=== PATIENT | male | born 1950 | race Caucasian/White ===

== ENCOUNTER 2017-08-26 20:26 | Emergency (ER) | payer MEDICAID, OTHER ==
[~2017-08-26] VITALS: Ht 188 cm; Wt 80.0 kg
[~2017-08-26 20:26] MED LIST: MULT-750 PO
[2017-08-26 22:36] VITALS: BP 145/94
== END 2017-08-26 22:37 | disposition home or self-care (01) ==
LOC: ED 22:05
DX: F10.220 Alcohol dependence with intoxication, uncomplicated (principal)
CPT/HCPCS: 99283

== ENCOUNTER 2018-04-08 13:28 | Emergency (ER) | payer MEDICARE, OTHER ==
[~2018-04-08] VITALS: Ht 188 cm; Wt 90.0 kg
[2018-04-08 15:45] VITALS: BP 157/95
== END 2018-04-08 17:26 | disposition left against medical advice (07) ==
LOC: ED 15:11
DX: F10.220 Alcohol dependence with intoxication, uncomplicated (principal)
CPT/HCPCS: 99283

== ENCOUNTER 2018-11-20 12:18 | Emergency (ER) | payer MEDICARE ==
[~2018-11-20] VITALS: Ht 188 cm; Wt 85.2 kg
[~2018-11-20 12:18] MED LIST changes: +LISI-167 PO
[2018-11-20] MEDS ORDERED: SODIUM CHLORIDE 0.9% 1,000 ML IV ONE (12:48)
[2018-11-20] MEDS ORDERED: ONDANSETRON 2MG/ML, 2ML IVPush ONE (13:00)
[2018-11-20] MEDS ORDERED: SODIUM CHLORIDE 0.9% 1,000ML IVBOLUS ONE (13:00)
[2018-11-20] MEDS ORDERED: SODIUM CHLORIDE FLUSH 10ML SYR IVF ONE (13:00)
[2018-11-20] MEDS ORDERED: ONDANSETRON 2MG/ML, 2ML ONE (13:02)
[2018-11-20] MEDS ORDERED: HYDROmorphone 1 MG/ML, 1ML VIAL ONE (13:03)
[2018-11-20 13:10] LABS: BASOPHILS % (AUTO) 0 % (0-1); EOSINOPHILS # (AUTO) 0.12 x10^3/uL (0-0.4); EOSINOPHILS % (AUTO) 2 % (1-7); LYMPHOCYTES # (AUTO) 0.63 x10^3/uL (1-3.4); LYMPHOCYTES % (AUTO) 9 % (22-44); MD NO; MEAN CORPUSCULAR HEMOGLOBIN 34.9 pg (27.5-34.5); MEAN CORPUSCULAR HGB CONC 33.3 g/dL (33.2-36.2); MEAN CORPUSCULAR VOLUME 104.8 fL (81-97); MEAN PLATELET VOLUME 8.4 fL (7.4-10.4); MONOCYTES # (AUTO) 0.34 x10^3/uL (0.2-0.8); MONOCYTES % (AUTO) 5 % (2-9); NEUTROPHILS # (AUTO) 6.27 x10^3/uL (1.8-6.8); NEUTROPHILS % (AUTO) 85 % (42-75); PLATELET COUNT 330 x10^3/uL (130-400); RED BLOOD COUNT 3.75 x10^6/uL (4.38-5.82); RED CELL DISTRIBUTION WIDTH 15.9 % (9.4-14.8)
--- NOTE | 2018-11-20 13:10 | NUR ---
THIS IS A 67 YO MALE WHO PRESENTS TO THE ER C/O N/V AND RUQ PINPOINT PAIN X 2 DAYS. PT REPORTS 5 TOTAL EPISODES OF EMESIS. PT ALSO REPORTS BLACK STOOL BUT STATES "I'VE BEEN TAKING A LOT OF PEPTO BISMAL". PT AO X 4. SKIN PWD. RESP EVEN AND UNLABORED. PT ON CONT BP AND O2 MONITORS. CALL LIGHT WITHIN REACH. WILL CONT TO MONITOR PT.
[2018-11-20] MEDS ORDERED: PANTOPRAZOLE 40 MG IV ONE (13:15)
[2018-11-20 13:22] LABS: ALANINE AMINOTRANSFERASE 428 U/L (12-78); ALBUMIN 3.9 g/dL (3.4-5.0); ANION GAP 7 mmol/L (5-15); CALCIUM 9.8 mg/dL (8.5-10.1); CHLORIDE 103 mmol/L (98-107); CREATININE 1.19 mg/dL (0.7-1.3)
[2018-11-20 13:28] LABS: ALKALINE PHOSPHATASE 135 U/L (45-117); BILIRUBIN,TOTAL 3.6 mg/dL (0.2-1.0); TOTAL PROTEIN 7.8 g/dL (6.4-8.2); TROPONIN I < 0.015 ng/mL (0.000-0.045)
[2018-11-20] MEDS ORDERED: PANTOPRAZOLE 40 MG IV IVP ONE (13:30)
[2018-11-20] MEDS ORDERED: HYDROmorphone 2 MG/ML, 1ML IVPush PRN (13:30)
--- NOTE | 2018-11-20 14:10 | NUR ---
US AT BEDSIDE. PT REPORTS PAIN IS NOW MOSTLY RESOLVED. PT AO X 4. SKIN PWD. RESP EVEN AND UNLABORED. PT CURRENTLY DENIES NAUSEA. PT ON CONT BP, CARDIAC AND O2 MONITORS. CALL LIGHT WITHIN REACH. WILL CONT TO MONITOR PT.
--- NOTE | 2018-11-20 14:52 | NUR ---
JARED STUDENT LUCINA AT BEDSIDE FOR RECHECK/EXPLANATION OF POC/RESULTS. PT VERBALIZES UNDERSTANDING. PT CURRENTLY DENIES PAIN. PT WAS STEADY UPON AMBULATION TO RESTROOM. URINE SAMPLE WAS OBTAINED AND SENT TO LAB. PT AO X 4. SKIN PWD. RESP EVEN AND UNLABORED. PT ON CONT BP, CARDIAC AND O2 MONITORS. CALL LIGHT WITHIN REACH. WILL CONT TO MONITOR PT.
[2018-11-20 15:11] LABS: CULTURE INDICATED? YES; MICROSCOPIC INDICATED
[2018-11-20] MEDS ORDERED: SODIUM CHLORIDE FLUSH 10ML SYR IVF PRN (15:30)
--- NOTE | 2018-11-20 15:34 | NUR ---
PT CURRENTLY RESTING ON GURNEY. NAD NOTED. SKIN PWD. RESP EVEN AND UNLABORED. PT REPORTED TO RN "ORIGINALLY I AGREED TO BEING ADMITTED, BUT I JUST CAN'T. 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 I'LL COME BACK. BUT I JUST HAVE TOO MUCH GOING ON RIGHT NOW." RN DISCUSSED THIS WITH EDITING COMPUTER PUBLISHER STUDENT LUCINA WHO WILL DISCUSS IT THE ERMMic LI. PT CONT TO DENY PAIN OR N/V AT THIS TIME. PT ON CONT BP, CARDIAC AND O2 MONITORS. PT AWARE WE ARE WAITING FOR ERMD TO DISCUSS POC WITH PT. PT DENIES OTHER NEEDS AT THIS TIME. CALL LIGHT WITHIN REACH. WILL CONT TO MONITOR PT.
--- NOTE | 2018-11-20 16:34 | NUR ---
PT CURRENTLY RESTING ON GURNEY. NAD NOTED. SKIN PWD. RESP EVEN AND UNLABORED. PT CONT TO DENY PAIN AND N/V. PT AOX 4. SKIN PWD. RESP EVEN AND UNLABORED. PT AWARE THAT WE ARE WAITING FOR HOSPITALIST TO SEE PT AND DISCUSS POC FOR POSSIBLY LEAVING. PT ON CONT BP, CARDIAC AND O2 MONITORS. CALL LIGHT WITHIN REACH. WILL CONT TO MONITOR PT.
--- NOTE | 2018-11-20 17:01 | NUR ---
PT APPEARED IN HALLWAY BY RN STATION, PT HAD PULLED OWN IV. IV CATHETER TIP INTACT. PT EDUCATED BY RN ON RISKS OF LEAVING AMA UP TO AND INCLUDING . RN STRONGLY EDUCATED PT NOT TO DRINK. PT VERBALIZED UNDERSTANDING AND STATED HE WOULD RETURN "AFTER THIS PROJECT IS DONE". AMA PAPERWORK SIGNED.
[2018-11-20 17:08] VITALS: BP 156/78
== END 2018-11-20 15:05 ==
LOC: ED 15:04 → EDIP 15:05 → UNDOADMIN 15:05 → ED 15:05 → 3NE 15:51 → EDIP 15:51 → 3NE 16:41 → EDIP 16:41 → UNDODISIN 17:08
DX: R10.11 Right upper quadrant pain (principal); R10.13 Epigastric pain; E80.6 Other disorders of bilirubin metabolism; R11.2 Nausea with vomiting, unspecified
CPT/HCPCS: 36415; 76700; 80053; 81001; 83605; 83690; 84484; 85025; 87086; 93005; 96361; 96374; 96375; 99285; C9113; J1170; J2405; J7030

== ENCOUNTER 2019-09-16 19:50 | Emergency (ER) | payer MEDICARE ==
[~2019-09-16] VITALS: Ht 188 cm; Wt 82.0 kg
[~2019-09-16 19:50] MED LIST changes: +CEFD300C37 PO; +METR500T PO; +[UNRECOGNIZED DRUG - REMARK]
--- NOTE | 2019-09-16 20:10 | NUR ---
Patient BIB [facility] c/o witnessed seizure x1 today. Unknown amount of time. No hx of seizures. Patient drinks alcohol and has not had any since yesterday. Patient is currently AAOx3, GCS 15. Patient is in NAD. Respirations even and unlabored.
[2019-09-16] MEDS ORDERED: ONDANSETRON 2MG/ML, 2ML ONE (20:42)
[2019-09-16] MEDS ORDERED: ONDANSETRON 2MG/ML, 2ML IVPush ONE (21:00)
[2019-09-16] MEDS ORDERED: LORazepam 2 MG/ML, 1ML ONE (21:02)
[2019-09-16] MEDS ORDERED: LORazepam 2 MG/ML, 1ML IVPush ONE (21:30)
[2019-09-16] MEDS ORDERED: SODIUM CHLORIDE 0.9% 1,000ML IVBOLUS ONE (21:30)
[2019-09-16 21:50] LABS: ALANINE AMINOTRANSFERASE 44 U/L (12-78); ALBUMIN 4.3 g/dL (3.4-5.0); ANION GAP 20 mmol/L (5-15); CALCIUM 9.6 mg/dL (8.5-10.1); CHLORIDE 100 mmol/L (98-107); CREATININE 1.12 mg/dL (0.7-1.3)
[2019-09-16 21:52] LABS: ALKALINE PHOSPHATASE 73 U/L (45-117); BILIRUBIN,TOTAL 1.2 mg/dL (0.2-1.0); TOTAL PROTEIN 8.5 g/dL (6.4-8.2)
[2019-09-16 21:53] LABS: BASOPHILS % (AUTO) 0 % (0-1); EOSINOPHILS % (AUTO) 0 % (1-7); LYMPHOCYTES # (AUTO) 0.54 x10^3/uL (1-3.4); LYMPHOCYTES % (AUTO) 8 % (22-44); MD NO; MEAN CORPUSCULAR HEMOGLOBIN 35.4 pg (27.5-34.5); MEAN CORPUSCULAR HGB CONC 33.7 g/dL (33.2-36.2); MEAN PLATELET VOLUME 8.4 fL (7.4-10.4); MONOCYTES # (AUTO) 0.37 x10^3/uL (0.2-0.8); MONOCYTES % (AUTO) 5 % (2-9); NEUTROPHILS # (AUTO) 5.99 x10^3/uL (1.8-6.8); NEUTROPHILS % (AUTO) 87 % (42-75); PLATELET COUNT 147 x10^3/uL (130-400); RED BLOOD COUNT 4.07 x10^6/uL (4.38-5.82); RED CELL DISTRIBUTION WIDTH 14.9 % (9.4-14.8)
[2019-09-16 22:34] VITALS: BP 148/82
--- NOTE | 2019-09-16 22:43 | NUR ---
Patient tremors decreased. HR decreased to the 70s. Patient AAOx4 and answering all questions appropriately. Patient states he is going to attempt to stop drinking at home. Discharge instructions given. All questions and concerns addressed. Patient states he will call daughter on his own. Patient ambulatory with a steady gait. Belongings with patient.
== END 2019-09-16 22:52 | disposition home or self-care (01) ==
LOC: ED 22:00
DX: R56.9 Unspecified convulsions (principal); F10.239 Alcohol dependence with withdrawal, unspecified; F41.9 Anxiety disorder, unspecified; R45.4 Irritability and anger; R41.82 Altered mental status, unspecified; R94.31 Abnormal electrocardiogram [ECG] [EKG]; I10 Essential (primary) hypertension; Y90.9 Presence of alcohol in blood, level not specified
CPT/HCPCS: 36415; 70450; 80053; 80307; 85025; 93005; 96365; 96375; 99285; J2060; J2405; J7030

== ENCOUNTER 2019-11-11 13:34 | Inpatient (IN) | payer MEDICARE ==
[~2019-11-11] VITALS: Ht 190.5 cm; Wt 104.8 kg
[2019-11-11] MEDS ORDERED: LORazepam 2 MG/ML, 1ML ONE ×3 (13:50→18:19)
[2019-11-11] MEDS: LORazepam 2 MG/ML, 1ML IVPush PRN ×3 (13:52→18:21)
[2019-11-11] MEDS ORDERED: MAGNESIUM SULFATE 1 GM, THIAMINE 100 MG, FOLIC ACID 1 MG, MVI ADULT 10 ML in SODIUM CHL... IV ONE (14:00)
[2019-11-11] MEDS ORDERED: SODIUM CHLORIDE FLUSH 10ML SYR IVF ONE (14:00)
[2019-11-11] MEDS ORDERED: PLEASE ENTER HEIGHT AND WEIGHT MC SCH (14:00)
--- NOTE | 2019-11-11 14:00 | NUR ---
pt had sz 30 seconds, then fell back and hit head. small bump/scrape bleding contrld. oriented to self, reoriented to time/place/situation. sts wants to stop drinking. witnessed by roommate. here last month for same. speaking in full sentences. neuros grossly intact. denies ah/vh. shaking. grausz in room. ativan per jul, piv by ems. as
[2019-11-11 14:22] LABS: BASOPHILS # (AUTO) 0.01 x10^3/uL (0-0.1); BASOPHILS % (AUTO) 0 % (0-1); EOSINOPHILS # (AUTO) 0.04 x10^3/uL (0-0.4); EOSINOPHILS % (AUTO) 1 % (1-7); LYMPHOCYTES # (AUTO) 0.66 x10^3/uL (1-3.4); LYMPHOCYTES % (AUTO) 9 % (22-44); MD NO; MEAN CORPUSCULAR HEMOGLOBIN 36.5 pg (27.5-34.5); MEAN CORPUSCULAR HGB CONC 34.1 g/dL (33.2-36.2); MEAN CORPUSCULAR VOLUME 107.1 fL (81-97); MEAN PLATELET VOLUME 8.4 fL (7.4-10.4); MONOCYTES % (AUTO) 4 % (2-9); NEUTROPHILS # (AUTO) 6.11 x10^3/uL (1.8-6.8); NEUTROPHILS % (AUTO) 86 % (42-75); PLATELET COUNT 192 x10^3/uL (130-400); RED BLOOD COUNT 3.95 x10^6/uL (4.38-5.82); RED CELL DISTRIBUTION WIDTH 17.4 % (9.4-14.8)
[2019-11-11 14:23] LABS: ANION GAP 16 mmol/L (5-15); CALCIUM 9.2 mg/dL (8.5-10.1); CHLORIDE 102 mmol/L (98-107)
[2019-11-11 14:27] LABS: ALANINE AMINOTRANSFERASE 63 U/L (12-78); ALKALINE PHOSPHATASE 85 U/L (45-117); BILIRUBIN,TOTAL 1.1 mg/dL (0.2-1.0); CREATININE 1.31 mg/dL (0.7-1.3); TOTAL PROTEIN 8.3 g/dL (6.4-8.2)
--- NOTE | 2019-11-11 14:56 | NUR ---
a&ox1 still. easily roused from sleeping. bel in room for eval, discussed need for head CT. less shaky. SR 80s. call carter/fall precs/sz precs. as
--- NOTE | 2019-11-11 15:10 | NUR ---
PT ROOM RIMA VILLA WITH PU PT IF DISCHARGED [phone]
--- NOTE | 2019-11-11 16:00 | NUR ---
PT SLEEPING, EASILY ROUSED. ORIENTED TO TIME/PLACE/SELF, NOT EVENT. NSR ON MONITOR. GIVEN WATER PER MD.
--- NOTE | 2019-11-11 16:56 | NUR ---
TASK RN: PT CONTINUES TO SLEEP ON PRATIMALINDSTROM. DAWSON
--- NOTE | 2019-11-11 17:48 | NUR ---
ATTEMPTED TO WALK PT. PT UNABLE TO STAND ON HIS OWN. BM CLEANED. SHEETS CHANGED. TBADM.
--- NOTE | 2019-11-11 18:23 | NUR ---
another dose ativan per mar, pt shaky. more alert. still does not remember why he is here. vss. fall precs. as
[2019-11-11] MEDS ORDERED: LISI2.5T PO (18:24)
[2019-11-11] MEDS ORDERED: LORazepam 2 MG/ML, 1ML IVPush PRN (19:00)
[2019-11-11] MEDS ORDERED: BISACODYL 10 MG SUPP PR PRN (19:00)
[2019-11-11] MEDS ORDERED: LABETALOL 5MG/ML, 20ML IVPush PRN (19:00)
[2019-11-11] MEDS ORDERED: ACETAMINOPHEN 325 MG TABLET PO PRN (19:00)
[2019-11-11] MEDS ORDERED: POLYETHYLENE GLYCOL 17 GM PACKET PO PRN (19:00)
--- NOTE | 2019-11-11 19:10 | NUR ---
attmept to call report x1. as
[2019-11-11 19:13] LABS: INTERNATIONAL NORMALIZED RATIO 0.94 (0.93-1.1)
--- NOTE | 2019-11-11 19:17 | NUR ---
report to tory bentley. as
[2019-11-11] MEDS: CHLORDIAZEPOXIDE 25 MG CAPSULE PO SCH (19:55)
[2019-11-11] MEDS: NICOTINE 21 MG/24 HR PATCH.TD24 TD SCH (19:55)
[2019-11-11] MEDS: hydrALAzine 20 MG/ML, 1ML IVPush PRN (19:58)
[2019-11-11 20:00] VITALS: BP 165/92
[2019-11-11 21:25] VITALS: BP 171/96
[2019-11-12] MEDS ORDERED: MAGNESIUM SULFATE PMX 2GM/50ML 50 ML IV ONE
[2019-11-12 02:00] VITALS: BP 157/86
[2019-11-12] MEDS: CHLORDIAZEPOXIDE 25 MG CAPSULE PO SCH ×5 (05:25→20:07)
[2019-11-12 05:47] LABS: BASOPHILS # (AUTO) 0.02 x10^3/uL (0-0.1); BASOPHILS % (AUTO) 0 % (0-1); EOSINOPHILS # (AUTO) 0.18 x10^3/uL (0-0.4); EOSINOPHILS % (AUTO) 3 % (1-7); LYMPHOCYTES # (AUTO) 1.16 x10^3/uL (1-3.4); LYMPHOCYTES % (AUTO) 16 % (22-44); MD NO; MEAN CORPUSCULAR HGB CONC 33.9 g/dL (33.2-36.2); MEAN CORPUSCULAR VOLUME 106.4 fL (81-97); MEAN PLATELET VOLUME 8.6 fL (7.4-10.4); MONOCYTES # (AUTO) 0.55 x10^3/uL (0.2-0.8); MONOCYTES % (AUTO) 8 % (2-9); NEUTROPHILS # (AUTO) 5.31 x10^3/uL (1.8-6.8); NEUTROPHILS % (AUTO) 74 % (42-75); PLATELET COUNT 159 x10^3/uL (130-400); RED BLOOD COUNT 3.85 x10^6/uL (4.38-5.82); RED CELL DISTRIBUTION WIDTH 17.3 % (9.4-14.8)
[2019-11-12 05:54] LABS: ALBUMIN 3.7 g/dL (3.4-5.0); ANION GAP 7 mmol/L (5-15); CALCIUM 8.8 mg/dL (8.5-10.1); CHLORIDE 99 mmol/L (98-107)
[2019-11-12 05:57] LABS: ALANINE AMINOTRANSFERASE 51 U/L (12-78); ALKALINE PHOSPHATASE 75 U/L (45-117); CREATININE 0.94 mg/dL (0.7-1.3); TOTAL PROTEIN 7.6 g/dL (6.4-8.2)
[2019-11-12 06:18] VITALS: BP 157/98
[2019-11-12] MEDS ORDERED: PANTOPRAZOLE 40 MG IV IVPush SCH (07:30)
[2019-11-12] MEDS ORDERED: LORazepam 1MG TABLET PO PRN ×4 (07:30→17:30)
[2019-11-12] MEDS ORDERED: LORazepam 2 MG/ML, 1ML IV PRN ×3 (07:30→17:30)
[2019-11-12] MEDS ORDERED: LORazepam 0.5MG TABLET PO PRN (07:30)
[2019-11-12] MEDS: THIAMINE 100MG TABLET PO SCH (07:46)
[2019-11-12] MEDS: SENNA/DOCUSATE TABLET PO SCH (07:46)
[2019-11-12] MEDS: FOLIC ACID 1 MG TABLET PO SCH (07:46)
[2019-11-12] MEDS: MULTIVITAMIN 1 TABLET PO SCH (07:46)
[2019-11-12] MEDS ORDERED: LISI1TAB19 PO (08:52)
[2019-11-12] MEDS: POTASSIUM CHLORIDE 20 MEQ TAB.ER.PRT PO SCH ×2 (09:05→15:57)
[2019-11-12] MEDS: LORazepam 2 MG/ML, 1ML IV PRN ×5 (11:35→23:22)
[2019-11-12 12:07] VITALS: BP 162/83
[2019-11-12] MEDS ORDERED: HALOPERIDOL 5 MG/ML ONE (14:56)
[2019-11-12] MEDS ORDERED: HALOPERIDOL 5 MG/ML IV ONE (15:00)
[2019-11-12] MEDS ORDERED: POTASSIUM CHLORIDE 20 MEQ, THIAMINE 200 MG, FOLIC ACID 1 MG, MVI ADULT 10 ML in SODIUM ... IV SCH (15:00)
[2019-11-12] MEDS ORDERED: ZIPRASIDONE 20 MG INJ IM PRN (17:30)
[2019-11-12 19:16] VITALS: BP 157/79
[2019-11-12] MEDS: NICOTINE 21 MG/24 HR PATCH.TD24 TD SCH (20:11)
[2019-11-12] MEDS ORDERED: CHLORDIAZEPOXIDE 25 MG CAPSULE PO SCH (21:00)
[2019-11-13] MEDS: LORazepam 2 MG/ML, 1ML IV PRN ×5 (01:45→23:09)
[2019-11-13 02:00] VITALS: BP 149/72
[2019-11-13] MEDS: CHLORDIAZEPOXIDE 25 MG CAPSULE PO SCH ×4 (05:51→20:11)
[2019-11-13] MEDS: PANTOPRAZOLE 40MG TABLET PO SCH (05:51)
[2019-11-13 07:00] LABS: BASOPHILS # (AUTO) 0.02 x10^3/uL (0-0.1); BASOPHILS % (AUTO) 0 % (0-1); EOSINOPHILS # (AUTO) 0.17 x10^3/uL (0-0.4); EOSINOPHILS % (AUTO) 2 % (1-7); LYMPHOCYTES # (AUTO) 1.02 x10^3/uL (1-3.4); LYMPHOCYTES % (AUTO) 11 % (22-44); MD NO; MEAN CORPUSCULAR HEMOGLOBIN 36.1 pg (27.5-34.5); MEAN CORPUSCULAR HGB CONC 34.1 g/dL (33.2-36.2); MEAN PLATELET VOLUME 8.7 fL (7.4-10.4); MONOCYTES # (AUTO) 0.58 x10^3/uL (0.2-0.8); MONOCYTES % (AUTO) 7 % (2-9); NEUTROPHILS # (AUTO) 7.14 x10^3/uL (1.8-6.8); NEUTROPHILS % (AUTO) 80 % (42-75); PLATELET COUNT 144 x10^3/uL (130-400); RED BLOOD COUNT 4.14 x10^6/uL (4.38-5.82); RED CELL DISTRIBUTION WIDTH 16.9 % (9.4-14.8)
[2019-11-13 07:15] LABS: ANION GAP 7 mmol/L (5-15); CALCIUM 9.3 mg/dL (8.5-10.1); CHLORIDE 108 mmol/L (98-107)
[2019-11-13 07:19] LABS: ALANINE AMINOTRANSFERASE 47 U/L (12-78); ALKALINE PHOSPHATASE 86 U/L (45-117); BILIRUBIN,TOTAL 2.4 mg/dL (0.2-1.0); CREATININE 1.12 mg/dL (0.7-1.3); TOTAL PROTEIN 8.2 g/dL (6.4-8.2)
[2019-11-13 07:42] VITALS: BP 146/97
[2019-11-13] MEDS: SENNA/DOCUSATE TABLET PO SCH (09:00)
[2019-11-13] MEDS: THIAMINE 100MG TABLET PO SCH (09:16)
[2019-11-13] MEDS: FOLIC ACID 1 MG TABLET PO SCH (09:17)
[2019-11-13] MEDS: MULTIVITAMIN 1 TABLET PO SCH (09:17)
[2019-11-13] MEDS: POTASSIUM CHLORIDE 20 MEQ TAB.ER.PRT PO SCH ×2 (09:17→17:19)
[2019-11-13 13:22] VITALS: BP 137/79
[2019-11-13] MEDS: D5%-0.45NACL+KCL 20MEQ 1,000 ML IV SCH (13:24)
[2019-11-13 20:08] VITALS: BP 149/109
[2019-11-13] MEDS: NICOTINE 21 MG/24 HR PATCH.TD24 TD SCH (20:10)
[2019-11-14 01:49] VITALS: BP 133/60
[2019-11-14] MEDS: D5%-0.45NACL+KCL 20MEQ 1,000 ML IV SCH ×2 (02:47→18:36)
[2019-11-14] MEDS: LORazepam 2 MG/ML, 1ML IV PRN ×2 (02:57→05:07)
[2019-11-14] MEDS: CHLORDIAZEPOXIDE 25 MG CAPSULE PO SCH ×3 (05:08→16:00)
[2019-11-14] MEDS: PANTOPRAZOLE 40MG TABLET PO SCH (05:08)
[2019-11-14 06:51] LABS: BASOPHILS # (AUTO) 0.03 x10^3/uL (0-0.1); BASOPHILS % (AUTO) 0 % (0-1); EOSINOPHILS # (AUTO) 0.27 x10^3/uL (0-0.4); EOSINOPHILS % (AUTO) 3 % (1-7); LYMPHOCYTES # (AUTO) 0.77 x10^3/uL (1-3.4); LYMPHOCYTES % (AUTO) 8 % (22-44); MD NO; MEAN CORPUSCULAR HEMOGLOBIN 36.3 pg (27.5-34.5); MEAN CORPUSCULAR HGB CONC 33.5 g/dL (33.2-36.2); MEAN CORPUSCULAR VOLUME 108.5 fL (81-97); MEAN PLATELET VOLUME 9.3 fL (7.4-10.4); MONOCYTES # (AUTO) 0.57 x10^3/uL (0.2-0.8); MONOCYTES % (AUTO) 6 % (2-9); NEUTROPHILS # (AUTO) 7.83 x10^3/uL (1.8-6.8); NEUTROPHILS % (AUTO) 83 % (42-75); PLATELET COUNT 124 x10^3/uL (130-400); RED BLOOD COUNT 3.92 x10^6/uL (4.38-5.82); RED CELL DISTRIBUTION WIDTH 17.5 % (9.4-14.8)
[2019-11-14 07:04] LABS: ALANINE AMINOTRANSFERASE 50 U/L (12-78); ALBUMIN 3.7 g/dL (3.4-5.0); ANION GAP 11 mmol/L (5-15); CALCIUM 9.2 mg/dL (8.5-10.1); CHLORIDE 111 mmol/L (98-107); CREATININE 1.03 mg/dL (0.7-1.3)
[2019-11-14 07:06] LABS: ALKALINE PHOSPHATASE 80 U/L (45-117); BILIRUBIN,TOTAL 2.5 mg/dL (0.2-1.0); TOTAL PROTEIN 7.8 g/dL (6.4-8.2)
[2019-11-14] MEDS: POTASSIUM CHLORIDE 20 MEQ TAB.ER.PRT PO SCH ×2 (09:17→21:24)
[2019-11-14] MEDS: MULTIVITAMIN 1 TABLET PO SCH (09:17)
[2019-11-14] MEDS: SENNA/DOCUSATE TABLET PO SCH (09:18)
[2019-11-14] MEDS: FOLIC ACID 1 MG TABLET PO SCH (09:18)
[2019-11-14] MEDS: THIAMINE 100MG TABLET PO SCH (09:18)
[2019-11-14 09:29] VITALS: BP 144/105
[2019-11-14 15:30] VITALS: BP 146/98
[2019-11-14] MEDS ORDERED: CHLORDIAZEPOXIDE 25 MG CAPSULE PO PRN (17:47)
[2019-11-14] MEDS: NICOTINE 21 MG/24 HR PATCH.TD24 TD SCH (18:37)
[2019-11-14 19:38] VITALS: BP 141/98
[2019-11-15 01:18] VITALS: BP 160/97
[2019-11-15] MEDS: PANTOPRAZOLE 40MG TABLET PO SCH (05:23)
[2019-11-15 06:16] LABS: BASOPHILS # (AUTO) 0.03 x10^3/uL (0-0.1); BASOPHILS % (AUTO) 0 % (0-1); EOSINOPHILS # (AUTO) 0.55 x10^3/uL (0-0.4); EOSINOPHILS % (AUTO) 7 % (1-7); LYMPHOCYTES # (AUTO) 1.07 x10^3/uL (1-3.4); LYMPHOCYTES % (AUTO) 13 % (22-44); MD NO; MEAN CORPUSCULAR HEMOGLOBIN 36.4 pg (27.5-34.5); MEAN CORPUSCULAR HGB CONC 33.5 g/dL (33.2-36.2); MEAN CORPUSCULAR VOLUME 108.8 fL (81-97); MEAN PLATELET VOLUME 9.4 fL (7.4-10.4); MONOCYTES # (AUTO) 0.75 x10^3/uL (0.2-0.8); MONOCYTES % (AUTO) 9 % (2-9); NEUTROPHILS # (AUTO) 5.72 x10^3/uL (1.8-6.8); NEUTROPHILS % (AUTO) 70 % (42-75); PLATELET COUNT 121 x10^3/uL (130-400); RED CELL DISTRIBUTION WIDTH 18.1 % (9.4-14.8)
[2019-11-15 06:27] LABS: CHLORIDE 111 mmol/L (98-107)
[2019-11-15 06:34] LABS: ALANINE AMINOTRANSFERASE 65 U/L (12-78); ALBUMIN 3.5 g/dL (3.4-5.0); ALKALINE PHOSPHATASE 83 U/L (45-117); ANION GAP 9 mmol/L (5-15); BILIRUBIN,TOTAL 1.7 mg/dL (0.2-1.0); CALCIUM 9.3 mg/dL (8.5-10.1); CREATININE 0.97 mg/dL (0.7-1.3); TOTAL PROTEIN 7.7 g/dL (6.4-8.2)
[2019-11-15 07:46] VITALS: BP 144/99
[2019-11-15] MEDS: MULTIVITAMIN 1 TABLET PO SCH (08:19)
[2019-11-15] MEDS: SENNA/DOCUSATE TABLET PO SCH (08:19)
[2019-11-15] MEDS: FOLIC ACID 1 MG TABLET PO SCH (08:19)
[2019-11-15] MEDS: POTASSIUM CHLORIDE 20 MEQ TAB.ER.PRT PO SCH (08:19)
[2019-11-15] MEDS: THIAMINE 100MG TABLET PO SCH (08:19)
[2019-11-15] MEDS: D5%-0.45NACL+KCL 20MEQ 1,000 ML IV SCH (08:19)
[2019-11-15 14:24] VITALS: BP 134/91
[2019-11-15 19:16] VITALS: BP 130/87
[2019-11-15] MEDS: NICOTINE 21 MG/24 HR PATCH.TD24 TD SCH (20:49)
[2019-11-16 01:01] VITALS: BP 130/90
[2019-11-16] MEDS: PANTOPRAZOLE 40MG TABLET PO SCH (05:06)
[2019-11-16 05:22] LABS: BASOPHILS # (AUTO) 0.07 x10^3/uL (0-0.1); BASOPHILS % (AUTO) 1 % (0-1); EOSINOPHILS # (AUTO) 0.54 x10^3/uL (0-0.4); EOSINOPHILS % (AUTO) 8 % (1-7); LYMPHOCYTES # (AUTO) 0.97 x10^3/uL (1-3.4); LYMPHOCYTES % (AUTO) 15 % (22-44); MD NO; MEAN CORPUSCULAR HGB CONC 33.2 g/dL (33.2-36.2); MEAN CORPUSCULAR VOLUME 108.5 fL (81-97); MEAN PLATELET VOLUME 9.6 fL (7.4-10.4); MONOCYTES # (AUTO) 0.95 x10^3/uL (0.2-0.8); MONOCYTES % (AUTO) 15 % (2-9); NEUTROPHILS # (AUTO) 4.05 x10^3/uL (1.8-6.8); NEUTROPHILS % (AUTO) 62 % (42-75); PLATELET COUNT 112 x10^3/uL (130-400); RED BLOOD COUNT 3.81 x10^6/uL (4.38-5.82); RED CELL DISTRIBUTION WIDTH 17.2 % (9.4-14.8)
[2019-11-16 05:37] LABS: ALANINE AMINOTRANSFERASE 72 U/L (12-78); ANION GAP 9 mmol/L (5-15); CHLORIDE 108 mmol/L (98-107)
[2019-11-16 05:39] LABS: ALKALINE PHOSPHATASE 73 U/L (45-117); BILIRUBIN,TOTAL 1.2 mg/dL (0.2-1.0); CREATININE 0.96 mg/dL (0.7-1.3); TOTAL PROTEIN 6.9 g/dL (6.4-8.2)
[2019-11-16 07:48] VITALS: BP 132/92
[2019-11-16] MEDS: SENNA/DOCUSATE TABLET PO SCH (08:29)
[2019-11-16] MEDS: FOLIC ACID 1 MG TABLET PO SCH (08:31)
[2019-11-16] MEDS: MULTIVITAMIN 1 TABLET PO SCH (08:31)
[2019-11-16] MEDS: THIAMINE 100MG TABLET PO SCH (08:31)
[2019-11-16 15:18] VITALS: BP 128/62
[2019-11-16] MEDS: NICOTINE 21 MG/24 HR PATCH.TD24 TD SCH (20:00)
[2019-11-16 20:43] VITALS: BP 168/108
[2019-11-16] MEDS: hydrALAzine 20 MG/ML, 1ML IVPush PRN (20:47)
[2019-11-17 01:35] VITALS: BP 146/81
[2019-11-17] MEDS: PANTOPRAZOLE 40MG TABLET PO SCH (06:07)
[2019-11-17 06:23] VITALS: BP 145/88
[2019-11-17] MEDS: MULTIVITAMIN 1 TABLET PO SCH (08:41)
[2019-11-17] MEDS: SENNA/DOCUSATE TABLET PO SCH (08:41)
[2019-11-17] MEDS: THIAMINE 100MG TABLET PO SCH (08:41)
[2019-11-17] MEDS: FOLIC ACID 1 MG TABLET PO SCH (08:41)
[2019-11-17 13:34] VITALS: BP 144/86
[2019-11-17] MEDS: LISINOPRIL 10 MG TABLET PO SCH (14:36)
[2019-11-17 19:20] VITALS: BP 152/98
[2019-11-17] MEDS: NICOTINE 21 MG/24 HR PATCH.TD24 TD SCH (20:24)
[2019-11-18 00:16] VITALS: BP 133/90
[2019-11-18] MEDS: PANTOPRAZOLE 40MG TABLET PO SCH (05:21)
[2019-11-18 07:34] VITALS: BP 141/93
[2019-11-18] MEDS: FOLIC ACID 1 MG TABLET PO SCH (09:16)
[2019-11-18] MEDS: THIAMINE 100MG TABLET PO SCH (09:16)
[2019-11-18] MEDS: LISINOPRIL 10 MG TABLET PO SCH (09:16)
[2019-11-18] MEDS: SENNA/DOCUSATE TABLET PO SCH (09:16)
[2019-11-18] MEDS: MULTIVITAMIN 1 TABLET PO SCH (09:16)
[2019-11-18] MEDS ORDERED: MULT-449 PO (10:50)
[2019-11-18] MEDS ORDERED: FOLI-17 PO (10:50)
[2019-11-18] MEDS ORDERED: THIA100T67 PO (10:50)
[2019-11-18 13:26] VITALS: BP 114/75
[2019-11-18 19:37] VITALS: BP 150/88
[2019-11-18] MEDS: NICOTINE 21 MG/24 HR PATCH.TD24 TD SCH (20:05)
[2019-11-19 01:18] VITALS: BP 132/94
[2019-11-19] MEDS: PANTOPRAZOLE 40MG TABLET PO SCH (05:43)
[2019-11-19 06:36] VITALS: BP 126/83
[2019-11-19] MEDS: SENNA/DOCUSATE TABLET PO SCH (09:00)
[2019-11-19] MEDS: LISINOPRIL 10 MG TABLET PO SCH (11:12)
[2019-11-19] MEDS: THIAMINE 100MG TABLET PO SCH (11:13)
[2019-11-19] MEDS: MULTIVITAMIN 1 TABLET PO SCH (11:13)
[2019-11-19] MEDS: FOLIC ACID 1 MG TABLET PO SCH (11:14)
== END 2019-11-19 15:00 | disposition home or self-care (01) | DRG 896 ==
LOC: ED 15:27 → EDIP 18:32 → 4EST 19:28 → 3N 11-17 09:40 → DCLOUNGE 11-19 14:55
PROVIDERS: ADMIT Family Medicine; ATTEND Internal Medicine
DX: F10.231 Alcohol dependence with withdrawal delirium (principal); N17.0 Acute kidney failure with tubular necrosis; K70.10 Alcoholic hepatitis without ascites; Z88.0 Allergy status to penicillin; D69.59 Other secondary thrombocytopenia; D75.89 Other specified diseases of blood and blood-forming organs; F17.200 Nicotine dependence, unspecified, uncomplicated; I10 Essential (primary) hypertension; R56.9 Unspecified convulsions; S01.81XA Laceration without foreign body of other part of head, initial encounter; W18.39XA Other fall on same level, initial encounter; Y93.89 Activity, other specified; Y92.89 Other specified places as the place of occurrence of the external cause; Y99.8 Other external cause status
CPT/HCPCS: 36415; 80053; 80307; 83690; 83735; 84100; 85025; 85610; 96374; 96375; 96376; G0378; J3411; J3475; J3486; C9113; J0360; J1630; J2060; J3480; J7030

== ENCOUNTER 2020-01-24 22:45 | Emergency (ER) | payer MEDICARE ==
[~2020-01-24] VITALS: Ht 190.5 cm; Wt 84.7 kg
[~2020-01-24 22:45] MED LIST changes: +FOLI-17 PO; +LISI1TAB19 PO; +LISI2.5T PO; +MULT-449 PO; +THIA100T67 PO
--- NOTE | 2020-01-24 23:04 | NUR ---
BIB EMS FROM HOME. EMS CALLED BY ROOMMATE WHO REPORTS THAT PT HAS BEEN DRINKING HEAVILY X THREE WEEKS RESULTING IN MULTIPLE FALLS. FOUND ON GROUND BY ROOMMATE TODAY AFTER HEARING A LOUD "THUMP". PT REPORTS BACK PAIN, FULL ROM AND MOVING ALL EXTREMITIES. DIFFUSE BRUISING NOTED OVER FACE. PT DENIES LOC/INCONTINENCE OR SZ ACTIVITY; DENIES MIDLINE NECK PAIN. NO STEP OFFS OR CREPITUS NOTED. BP/SPO2/ECG MONITORING IN PLACE. BRADYCARDIC ON MONITOR. FALL PRECAUTIONS REVIEWED EXTENSIVELY WITH PT WHO IS LARGELY NON-COOPERATIVE. CHARGE AWARE OF POSSIBLE NEED FOR SITTER. PT RESTING CALMLY IN RNEY AT THIS TIME AND HAS AGREED TO REMAIN IN BED AND USE CALL LIGHT IF NEEDED. PT AGREES NOT TO GET UP WITHOUT ASSISTANCE.
--- NOTE | 2020-01-24 23:19 | NUR ---
REPORT TO KB LAMAS. PT MOVED TO ROOM 2 BY OLINDA TO BE OBSERVED BY A SITTER
[2020-01-24 23:46] VITALS: BP 119/84
--- NOTE | 2020-01-24 23:46 | NUR ---
PT RESTING ON GURNEY, MONITORING IN PLACE, CALL LIGHT WITHIN REACH. ALL SAFETY MEASURES IN PLACE.
--- NOTE | 2020-01-25 00:59 | NUR ---
PT REFUSED MONITORING "STATES IM TOO HUNGRY, IM GOING TO OF STARVING". PT EDUCATED ON NPO STATUS.
== END 2020-01-25 01:54 | disposition home or self-care (01) ==
LOC: ED 01-25 00:57
DX: S00.33XA Contusion of nose, initial encounter (principal); S00.81XA Abrasion of other part of head, initial encounter; F10.129 Alcohol abuse with intoxication, unspecified; Y90.9 Presence of alcohol in blood, level not specified; I10 Essential (primary) hypertension; W18.30XA Fall on same level, unspecified, initial encounter; Y93.89 Activity, other specified; Y92.89 Other specified places as the place of occurrence of the external cause; Y99.8 Other external cause status
CPT/HCPCS: 70450; 70486; 99285

== ENCOUNTER 2020-02-15 09:07 | Emergency (ER) | payer MEDICARE ==
[~2020-02-15] VITALS: Ht 185.4 cm; Wt 82.0 kg
[~2020-02-15 09:07] MED LIST changes: -LISI1TAB19 PO; +LISI1TAB39 PO
--- NOTE | 2020-02-15 09:25 | NUR ---
derian. report received from ems. +etoh. pt's roommate found him on the floor and suspected glf. pt denies falls/pain/loc. pt had left shoulder injury 3 days ago and treated at [facility]. pt's aox4. resps even and unlabored. bp/spo2 monitors in place. call light within reach. 1 l oxy via nc placed. edmd at bedside evaluating at this time.
[2020-02-15] MEDS ORDERED: THIAMINE 100MG TABLET PO ONE (09:30)
[2020-02-15] MEDS ORDERED: THIAMINE 100MG TABLET ONE (09:30)
[2020-02-15] MEDS ORDERED: PLEASE ENTER HEIGHT AND WEIGHT MC SCH (09:30)
--- NOTE | 2020-02-15 09:36 | NUR ---
pt medicated per emar. pt tolerated well.
--- NOTE | 2020-02-15 10:25 | NUR ---
pt sleeping in [facility]. pt's aox4. resps even and unlabored. bp/spo2 monitors in place. call light within reach.
--- NOTE | 2020-02-15 11:24 | NUR ---
pt resting in [facility]. pt's aox4. resps even and unlabored.
--- NOTE | 2020-02-15 12:25 | NUR ---
break RN note: pt sleeping on gurney, resps even and unlabored, vss. pt to be discharged when mobile and a&o to baseline.
[2020-02-15 12:31] VITALS: BP 119/79
--- NOTE | 2020-02-15 12:45 | NUR ---
REPORT GIVEN BACK TO PRIMARY RN ANGI WHO IS RESUMING CARE.
--- NOTE | 2020-02-15 13:03 | NUR ---
Patient given discharge instructions and they have confirmed that they understand the instructions. Patient ambulatory with steady gait.
== END 2020-02-15 13:04 | disposition home or self-care (01) ==
LOC: ED 12:55
DX: F10.229 Alcohol dependence with intoxication, unspecified (principal); I10 Essential (primary) hypertension; Y90.9 Presence of alcohol in blood, level not specified
CPT/HCPCS: 99283

== ENCOUNTER 2020-03-23 23:25 | Emergency (ER) | payer MEDICARE ==
[~2020-03-23] VITALS: Ht 177.8 cm; Wt 94.0 kg
--- NOTE | 2020-03-23 23:46 | NUR ---
PT ATTACHED TO VS MONITORS. PT BIB EMS FOR ACUTE ETOH INTOXICATION. PT UNCOOPERATIVE WITH THERMOMETER/TEMPERATURE, AND BECAME AGITATED WITH THIS RN. PT ABLE TO BE REDIRECTED AND BECOMES CALM WITH ADDITIONAL DIALOGUE. PT EDUCATED ON ER PROCESS AND VERBALIZES UNDERSTANDING. PT UNABLE TO TELL THIS RN MEDICAL HISTORY OR MEDICATION USE AT THIS TIME. PT ALERT TO PERSON, AND SITUATION. AWAITING ERP FOR PT HISTORY AND ASSESSMENT.
--- NOTE | 2020-03-24 00:35 | NUR ---
REPORT OF PT TO KB FERREIRA. ALL QUESTIONS ANSWERED.
--- NOTE | 2020-03-24 02:23 | NUR ---
PT AWAKE INTERMITTENTLY. PT VERBALLY AGGRESSIVE WITH THIS RN. PT CONTINUALLY REMINDED OF POC, AND IS REDIRECTABLE. BEDRAILS UP X2, CALL LIGHT IN REACH.
--- NOTE | 2020-03-24 03:08 | NUR ---
PT AMBULATORY IN [facility] WITH STEADY GAIT. REPORT TO KB OSEI. FARNAZ TO ASSUME FULL CARE.
--- NOTE | 2020-03-24 03:10 | NUR ---
assumed care of pt. report from Josette QUILES. pt here for ETOH. pt has been ambulated in the carreon by previous RN. pt resting in positon of comfort. no apparent distress
[2020-03-24 03:45] VITALS: BP 100/59
== END 2020-03-24 03:48 | disposition home or self-care (01) ==
LOC: ED 03-24 00:10
DX: F10.120 Alcohol abuse with intoxication, uncomplicated (principal); Y90.9 Presence of alcohol in blood, level not specified; I10 Essential (primary) hypertension
CPT/HCPCS: 99283

== ENCOUNTER 2020-04-17 16:27 | Emergency (ER) | payer MEDICARE ==
[~2020-04-17] VITALS: Ht 190.5 cm; Wt 90.0 kg
[2020-04-17 16:58] VITALS: BP 167/95
--- NOTE | 2020-04-17 17:02 | NUR ---
PT BIB EMS FOR ETOH, PT IS DRUNK, DRANK 1 PINT TODAY. PT CONFUSED BUT COOPERATIVE. DENIES CP OR SOB. NO INJURIES
[2020-04-17] MEDS ORDERED: THIAMINE 100MG TABLET PO ONE (17:30)
[2020-04-17 17:56] LABS: ALBUMIN 3.7 g/dL (3.4-5.0); ANION GAP 8 mmol/L (5-15); CALCIUM 8.6 mg/dL (8.5-10.1); CHLORIDE 107 mmol/L (98-107); CREATININE 0.91 mg/dL (0.7-1.3)
--- NOTE | 2020-04-17 18:22 | NUR ---
PT RESTING ON [employer]. MEAL TRAY ORDERED.
--- NOTE | 2020-04-17 18:30 | NUR ---
GIVEN MEAL TRAY
[2020-04-17 18:36] LABS: MEAN CORPUSCULAR HEMOGLOBIN 35.4 pg (27.5-34.5); MEAN CORPUSCULAR HGB CONC 34.4 g/dL (33.2-36.2); MEAN PLATELET VOLUME 7.9 fL (7.4-10.4); PLATELET COUNT 399 x10^3/uL (130-400); RED BLOOD COUNT 4.17 x10^6/uL (4.38-5.82); RED CELL DISTRIBUTION WIDTH 15.1 % (9.4-14.8)
[2020-04-17 18:40] LABS: MD YES
--- NOTE | 2020-04-17 18:45 | NUR ---
REPORT FROM RUDDY QUILES. PT ATTEMPTED TO AMBULATE BUT WAS UNSTEADY OON FEET. PT PUT BACK IN BED. CALL LIGHT IN REACH
--- NOTE | 2020-04-17 19:52 | NUR ---
PT SLEEPING. EVEN RISE AND FALL OF CHEST OBSERVED. VSS. WILL CONTINUE TO MONITOR.
[2020-04-17 19:59] LABS: BASOS#(MANUAL) 0.05 x10^3/uL (0-0.1); BASOS% (MANUAL) 1 % (0-1); EOS#(MANUAL) 0.05 x10^3/uL (0.0-0.4); EOS% (MANUAL) 1 % (1-7); LYMPH#(MANUAL) 2.32 x10^3/uL (1-3.4); LYMPHS% (MANUAL) 43 % (22-44); MONOS#(MANUAL) 0.49 x10^3/uL (0.3-2.7); MONOS% (MANUAL) 9 % (2-9); SEG#(MANUAL) 2.48 x10^3/uL (1.8-6.8); SEGS% (MANUAL) 46 % (42-75)
[2020-04-17 20:00] LABS: <PLATELET ESTIMATE> ADEQUATE; <PLT MORPHOLOGY> NORMAL PLT MORPH; ANISOCYTOSIS 1+; TEAR DROPS 1+
--- NOTE | 2020-04-17 20:50 | NUR ---
PT ANXIOUS TO LEAVE AND ABLE TO AMBULATE WITH A STEADY GAIT. VSS. PT VERBALIZED UNDERSTANDING OF DISCHARGE INSTRUCTIONS. CAB VOUCHER GIVEN FOR SAFE DISCHARGE. PT AMBULATED TO DISCHARGE DESK WITH NO ASSISTANCE
== END 2020-04-17 21:33 | disposition home or self-care (01) ==
LOC: ED 16:57
DX: F10.20 Alcohol dependence, uncomplicated (principal); I10 Essential (primary) hypertension; E83.42 Hypomagnesemia; Z72.9 Problem related to lifestyle, unspecified; Y90.0 Blood alcohol level of less than 20 mg/100 ml
CPT/HCPCS: 36415; 80048; 80307; 82040; 83735; 85025; 99283

== ENCOUNTER 2020-04-18 11:08 | Emergency (ER) | payer MEDICARE ==
[~2020-04-18] VITALS: Ht 188 cm; Wt 90.0 kg
--- NOTE | 2020-04-18 11:19 | NUR ---
EKG ATTEMPTED; PT VERY TREMULOUS. TECH TO TRY EKG LATER. PT STATES HIS ROOMMATE CALLED EMS. PT REPORTS 42 YR HX OF ETOH INTAKE; NOW DRINKING DAILY. LAST INTAKE: LAST NOC - DRANK VODKA, FROM A HANDLE BOTTLE. PER EMS, PT FOUND ON FLOOR, INCONTINENT OF URINE & STOOL; EMS HAD PT CLEAN HIMSELF PRIOR TO TRANSPORT. PT ORIENTED TO NAME, , SITUATION, THAT HE'S IN A HOSPTIAL; UNSURE OF YEAR. RESP EVEN & UNLABORED, SPEECH CLEAR. SCABBED WOUNDS NOTED TO SCALP; PT STATES HE FELL 2 DAYS AGO.
--- NOTE | 2020-04-18 11:27 | NUR ---
EMS NS INFUSING W-O UPON ARRIVAL: 900ML INFUSED. DRIP DC'Mic. SIDE RAILS UP X2, CALL LIGHT W/IN REACH.
--- NOTE | 2020-04-18 11:38 | NUR ---
PT WAS AT THIS ED YESTERDAY FOR ETOH; DC'D LAST NOC.
--- NOTE | 2020-04-18 12:41 | NUR ---
PT SITTING QUIETLY ON GURSAN LEANDRO. WATER PROVIDED. MONITORING CONTINUING: SUE
[2020-04-18 12:42] VITALS: BP 155/102
[2020-04-18 12:51] LABS: BASOPHILS % (AUTO) 1 % (0-1); EOSINOPHILS % (AUTO) 0 % (1-7); LYMPHOCYTES % (AUTO) 3 % (22-44); MEAN CORPUSCULAR HEMOGLOBIN 34.9 pg (27.5-34.5); MEAN CORPUSCULAR HGB CONC 34.5 g/dL (33.2-36.2); MEAN PLATELET VOLUME 8.4 fL (7.4-10.4); MONOCYTES % (AUTO) 5 % (2-9); NEUTROPHILS % (AUTO) 92 % (42-75); PLATELET COUNT 317 x10^3/uL (130-400); RED BLOOD COUNT 3.86 x10^6/uL (4.38-5.82); RED CELL DISTRIBUTION WIDTH 14.8 % (9.4-14.8)
[2020-04-18 12:59] LABS: ANION GAP 8 mmol/L (5-15); CALCIUM 8.9 mg/dL (8.5-10.1); CHLORIDE 104 mmol/L (98-107); CREATININE 0.87 mg/dL (0.7-1.3)
[2020-04-18 13:08] LABS: MD NO
--- NOTE | 2020-04-18 13:32 | NUR ---
PT RESTING ON [employer], WATCHING TV. ADDITIONAL WATER PROVIDED.
== END 2020-04-18 14:24 | disposition home or self-care (01) ==
LOC: ED 13:12
DX: F10.129 Alcohol abuse with intoxication, unspecified (principal); I10 Essential (primary) hypertension; Y90.9 Presence of alcohol in blood, level not specified; I48.91 Unspecified atrial fibrillation
CPT/HCPCS: 36415; 80048; 85025; 93005; 99284

== ENCOUNTER 2020-06-03 07:12 | Emergency (ER) | payer MEDICARE ==
[~2020-06-03] VITALS: Ht 190.5 cm; Wt 81.0 kg
[~2020-06-03 07:12] MED LIST changes: +ALBU18HF INH
--- NOTE | 2020-06-03 07:29 | NUR ---
PT FARZANEH QUINTANILLA, SPOUSE CALLED DWIGHT D/T PT BEING INTOXICATED, PT WITH NO MEDICAL COMPLAINTS. PT AOX1. FSBG 183. PT STATES "IM JUST DRUNK, I KNOW I DRINK TOO MUCH" PT TO BP, CONT PULSE OX. ERP IN TO EVAL PT, ORDERS RECIEVED
[2020-06-03 08:07] LABS: BASOPHILS % (AUTO) 1 % (0-1); EOSINOPHILS % (AUTO) 6 % (1-7); LYMPHOCYTES % (AUTO) 41 % (22-44); MEAN CORPUSCULAR HEMOGLOBIN 34.7 pg (27.5-34.5); MEAN CORPUSCULAR HGB CONC 34.6 g/dL (33.2-36.2); MEAN PLATELET VOLUME 8.2 fL (7.4-10.4); MONOCYTES % (AUTO) 6 % (2-9); NEUTROPHILS % (AUTO) 46 % (42-75); PLATELET COUNT 303 x10^3/uL (130-400); RED BLOOD COUNT 4.33 x10^6/uL (4.38-5.82); RED CELL DISTRIBUTION WIDTH 14.8 % (9.4-14.8)
[2020-06-03 08:12] LABS: ALBUMIN 3.8 g/dL (3.4-5.0); ANION GAP 8 mmol/L (5-15); CALCIUM 8.7 mg/dL (8.5-10.1); CHLORIDE 107 mmol/L (98-107)
[2020-06-03 08:17] LABS: ALANINE AMINOTRANSFERASE 42 U/L (12-78); ALKALINE PHOSPHATASE 90 U/L (45-117); BILIRUBIN,TOTAL 0.5 mg/dL (0.2-1.0); CREATININE 1.09 mg/dL (0.7-1.3); TOTAL PROTEIN 7.8 g/dL (6.4-8.2)
[2020-06-03 08:24] VITALS: BP 134/85
[2020-06-03 08:28] LABS: MD NO
--- NOTE | 2020-06-03 09:24 | NUR ---
PT CONTINOUSLY RIPPING OFF PULSE OX, MASK THROWN ON FLOOR AND BP CUFF, STATE "GOOD NIGHT, I JUST WANT TO SLEEP" "LEAVE ME SLEEP OK"
[2020-06-03] MEDS ORDERED: SODIUM CHLORIDE 0.9% 1,000ML IVBOLUS ONE (09:30)
== END 2020-06-03 11:27 | disposition left against medical advice (07) ==
LOC: ED 09:20
DX: F10.229 Alcohol dependence with intoxication, unspecified (principal); R06.89 Other abnormalities of breathing; R41.82 Altered mental status, unspecified; I10 Essential (primary) hypertension; Y90.0 Blood alcohol level of less than 20 mg/100 ml; F17.210 Nicotine dependence, cigarettes, uncomplicated
CPT/HCPCS: 36415; 71045; 80053; 80320; 82140; 83690; 85025; 99284; G0480

== ENCOUNTER 2020-06-04 08:56 | Emergency (ER) | payer MEDICARE ==
[~2020-06-04] VITALS: Ht 172.7 cm; Wt 84.5 kg
--- NOTE | 2020-06-04 09:08 | NUR ---
THIS IS A 69 YO M BIB EMS FROM HOME AFTER ROOMMATE CALLED CONCERNED W/ PTS MENTAL STATUS. PT REPORTS DRINKING 1/2 HANDLE OF VODKA TODAY. PT REPORTS DRINKS THIS AMOUNT EVERYDAY FOR "A LONG TIME". PT ORIENTED BUT SLURRING WORDS. PT RESTING ON [employer] W/ CALL LIGHT IN REACH, SIDE RAILS UPX2. DAWSON JIN.
[2020-06-04] MEDS ORDERED: THIAMINE 100MG TABLET ONE (09:15)
--- NOTE | 2020-06-04 09:28 | NUR ---
PT REPOSITIONED IN BED. EDUCATED ON NEED TO STAY ON GURNEY FOR SAFETY. CONNECTED TO ALL MONITORING, RESP EVEN AND UNLABORED,
[2020-06-04 09:34] LABS: BASOPHILS % (AUTO) 0 % (0-1); EOSINOPHILS % (AUTO) 6 % (1-7); LYMPHOCYTES % (AUTO) 47 % (22-44); MEAN CORPUSCULAR HEMOGLOBIN 34.4 pg (27.5-34.5); MEAN CORPUSCULAR HGB CONC 34.4 g/dL (33.2-36.2); MEAN PLATELET VOLUME 7.8 fL (7.4-10.4); MONOCYTES % (AUTO) 6 % (2-9); NEUTROPHILS % (AUTO) 42 % (42-75); PLATELET COUNT 255 x10^3/uL (130-400); RED BLOOD COUNT 4.44 x10^6/uL (4.38-5.82); RED CELL DISTRIBUTION WIDTH 14.9 % (9.4-14.8)
[2020-06-04 09:40] LABS: MD NO
--- NOTE | 2020-06-04 09:42 | NUR ---
PT CONTINUES TO RIP OFF O2 MONITORING. ANOTHER APPLIED. PT EDUCATED ON NEED TO KEEP ON AND ED PROCESS. RESTING ON GURNEY W/ SIDE RAILS UPX2 AND CALL LIGHT IN REACH, RESP EVEN AND UNLABORED, DAWSON.
[2020-06-04] MEDS ORDERED: THIAMINE 100MG TABLET PO ONE (10:00)
[2020-06-04 10:04] LABS: ALBUMIN 3.8 g/dL (3.4-5.0); ANION GAP 7 mmol/L (5-15); CALCIUM 8.5 mg/dL (8.5-10.1); CHLORIDE 104 mmol/L (98-107)
[2020-06-04 10:23] LABS: ALANINE AMINOTRANSFERASE 46 U/L (12-78); ALKALINE PHOSPHATASE 91 U/L (45-117); BILIRUBIN,TOTAL 0.6 mg/dL (0.2-1.0); TOTAL PROTEIN 7.8 g/dL (6.4-8.2)
[2020-06-04 10:25] LABS: ACETONE, SERUM Negative (Negative)
[2020-06-04 11:02] VITALS: BP 112/70
--- NOTE | 2020-06-04 11:08 | NUR ---
PT TOOK OF SPO2 MONITOR AGAIN, REPLACED AND REEDUCATED. PT RESTING ON [employer] W/ CALL LIGHT IN REACH AND SIDE RAILS UPX2. REQUESTING FOOD.
--- NOTE | 2020-06-04 11:23 | NUR ---
RECEIVED REPORT FROM ZULAY QUILES. ASSUMING CARE AT THIS TIME.
--- NOTE | 2020-06-04 11:51 | NUR ---
DIET TRAY PROVIDED.
--- NOTE | 2020-06-04 12:31 | NUR ---
PT PROVIDED PANTS. PT STOOD UP TO PUT ON PANTS AND WAS UNSTABLE ON FEET. PT HELPED BACK TO BED.
== END 2020-06-04 13:14 | disposition home or self-care (01) ==
LOC: ED 09:27
DX: F10.229 Alcohol dependence with intoxication, unspecified (principal); Y90.0 Blood alcohol level of less than 20 mg/100 ml
CPT/HCPCS: 36415; 80053; 80320; 82010; 83735; 85025; 99283; G0480

== ENCOUNTER 2020-06-05 10:47 | Emergency (ER) | payer MEDICARE ==
[~2020-06-05] VITALS: Ht 188 cm; Wt 86.8 kg
[2020-06-05 10:51] VITALS: BP 135/85
--- NOTE | 2020-06-05 12:52 | NUR ---
BEDSIDE REPORT RECEIVED FROM KB SINGLETARY FOR TRANSFER OF PATIENT CARE.
--- NOTE | 2020-06-05 13:12 | NUR ---
PATIENT RESTING IN GURNEY WITH EYES CLOSED, RESP EVEN AND UNLABORED, SIDE RAILS UP X2, CALL LIGHT WITHIN REACH.
--- NOTE | 2020-06-05 14:27 | NUR ---
PATIENT PROVIDED CLOTHING.
--- NOTE | 2020-06-05 15:04 | NUR ---
Patient given discharge instructions and they have confirmed that they understand the instructions. Taxi voucher provided to patient, and taxi called for pick-up. Patient ambulatory with steady gait from ED to taxi.
== END 2020-06-05 15:04 | disposition home or self-care (01) ==
LOC: ED 10:57
DX: F10.229 Alcohol dependence with intoxication, unspecified (principal); I10 Essential (primary) hypertension; Y90.0 Blood alcohol level of less than 20 mg/100 ml
CPT/HCPCS: 99283

== ENCOUNTER 2020-07-08 20:11 | Inpatient (IN) | payer MEDICARE ==
[~2020-07-08] VITALS: Ht 190.5 cm; Wt 88.9 kg
[~2020-07-08 20:11] MED LIST changes: -FOLI-17 PO; +FOLI1TAB32 PO
--- NOTE | 2020-07-08 20:40 | NUR ---
PATIENT REPORTS THAT HE DOES NOT TAKE ANY MEDICATIONS AT HOME
--- NOTE | 2020-07-08 20:43 | NUR ---
PATIENT DENIES NAUSEA/DUBON AT THIS TIME. DECLINES ZOFRAN AT THIS TIME
--- NOTE | 2020-07-08 20:48 | NUR ---
PATIENT PRESENTING TO ER FOR ETOH WITHDRAWLS. PATIENT'S STATEMENT IS THAT HIS ROOMMATE CALLED 911 ON HIM "BECAUSE SHE DIDNT WANT ME THERE. SHE IS AN ALCOHOLIC TOO". PATIENT DOES STATE HE WANTS TO STOP DRINKING ALCOHOL BUT ALSO STATES IN THE SAME CONVERSATION "I LIKE IT TOO MUCH". CALL VAUGHAN IN REACH. SAFETY MAINTAINED. WILL CONTINUE TO MONITOR
[2020-07-08 21:00] LABS: BASOPHILS % (AUTO) 0 % (0-1); EOSINOPHILS % (AUTO) 0 % (1-7); LYMPHOCYTES % (AUTO) 9 % (22-44); MEAN CORPUSCULAR HEMOGLOBIN 34.4 pg (27.5-34.5); MEAN CORPUSCULAR HGB CONC 34.1 g/dL (33.2-36.2); MEAN PLATELET VOLUME 8.4 fL (7.4-10.4); MONOCYTES % (AUTO) 7 % (2-9); NEUTROPHILS % (AUTO) 83 % (42-75); PLATELET COUNT 167 x10^3/uL (130-400); RED BLOOD COUNT 3.83 x10^6/uL (4.38-5.82); RED CELL DISTRIBUTION WIDTH 14.8 % (9.4-14.8)
[2020-07-08] MEDS ORDERED: ONDANSETRON 2MG/ML, 2ML IVPush ONE (21:00)
[2020-07-08] MEDS ORDERED: MAGNESIUM SULFATE 1 GM, THIAMINE 100 MG, FOLIC ACID 1 MG in SODIUM CHLORIDE 0.9% 1,000 ML IV ONE (21:00)
[2020-07-08] MEDS ORDERED: SODIUM CHLORIDE FLUSH 10ML SYR IVF ONE (21:00)
[2020-07-08] MEDS ORDERED: MAGNESIUM SULFATE 1 GM, THIAMINE 100 MG, FOLIC ACID 1 MG, MVI ADULT 10 ML in SODIUM CHL... IV ONE (21:00)
[2020-07-08] MEDS ORDERED: LORazepam 2 MG/ML, 1ML IVPush PRN (21:00)
[2020-07-08 21:08] LABS: ALANINE AMINOTRANSFERASE 29 U/L (12-78); ALBUMIN 3.5 g/dL (3.4-5.0); ANION GAP 9 mmol/L (5-15); CALCIUM 8.7 mg/dL (8.5-10.1); CHLORIDE 106 mmol/L (98-107); CREATININE 0.96 mg/dL (0.7-1.3)
[2020-07-08 21:09] LABS: MD NO
[2020-07-08 21:10] LABS: ALKALINE PHOSPHATASE 86 U/L (45-117); BILIRUBIN,TOTAL 1.5 mg/dL (0.2-1.0); TOTAL PROTEIN 7.3 g/dL (6.4-8.2)
--- NOTE | 2020-07-08 21:57 | NUR ---
RE-EVALUATION DONE OF PATIENT FOR CIWA SCORING DUE TO PATIENT HAS NOT NEEDED IV ORDERED ATIVAN SINCE ARRIVAL. PATIENT RECEIVED 3MG TOTAL OF IV VERSED CONSUMER RELATIONS SPECIALIST. ONLY SYMPTOM THUS FAR IS TREMORS. PATIENT RESTING IN BED WITH EYES CLOSED AND NO OBVIOUS TREMORS NOTED UNLESS TOUCHED. SEIZURE PADS REMAIN IN PLACE. CALL VAUGHAN IN REACH. PATIENT'S ROOM IS IN VIEW OF NURSES STATION AND CLOSELY MONITORED. IV BANANA BAG INFUSING PER ORDER. WILL CONTINUE TO MONITOR.
--- NOTE | 2020-07-08 23:00 | NUR ---
REPORT GIVEN TO RAQUEL QUILES ON TELE UNIT VIA PHONE
[2020-07-09] MEDS ORDERED: ONDANSETRON ODT 4 MG PO PRN
[2020-07-09] MEDS ORDERED: SODIUM CHLORIDE 0.9% 1,000 ML IV SCH
[2020-07-09] MEDS ORDERED: ONDANSETRON 2MG/ML, 2ML IVPush PRN
[2020-07-09] MEDS ORDERED: LORazepam 2 MG/ML, 1ML IV PRN ×3
[2020-07-09] MEDS ORDERED: POLYETHYLENE GLYCOL 17 GM PACKET PO PRN
[2020-07-09] MEDS ORDERED: BISACODYL 10 MG SUPP PR PRN
[2020-07-09] MEDS ORDERED: OXYcodone IR 5MG TABLET PO PRN
[2020-07-09] MEDS ORDERED: LORazepam 1MG TABLET PO PRN ×4
[2020-07-09] MEDS ORDERED: DOCUSATE 100 MG CAPSULE PO PRN
[2020-07-09] MEDS ORDERED: MAGNESIUM SULFATE PMX 2GM/50ML 50 ML IV ONE
[2020-07-09] MEDS ORDERED: hydrALAzine 20 MG/ML, 1ML IVPush PRN
[2020-07-09] MEDS ORDERED: ALBUTEROL HFA 90 MCG/SPRAY INH PRN
[2020-07-09] MEDS ORDERED: morphine SULFATE 10 MG/ML, 1ML IVPush PRN
[2020-07-09] MEDS ORDERED: PROMETHAZINE 25 MG/ML, 1ML IM PRN
[2020-07-09 00:13] VITALS: BP 181/97
[2020-07-09] MEDS: ENOXAPARIN 40 MG/0.4 ML SQ SCH (00:59)
[2020-07-09] MEDS: LORazepam 0.5MG TABLET PO PRN (01:29)
[2020-07-09 06:02] LABS: BASOPHILS % (AUTO) 1 % (0-1); EOSINOPHILS % (AUTO) 2 % (1-7); LYMPHOCYTES % (AUTO) 26 % (22-44); MD NO; MEAN CORPUSCULAR HEMOGLOBIN 34.2 pg (27.5-34.5); MEAN CORPUSCULAR HGB CONC 34.3 g/dL (33.2-36.2); MEAN PLATELET VOLUME 8.3 fL (7.4-10.4); MONOCYTES % (AUTO) 10 % (2-9); NEUTROPHILS % (AUTO) 62 % (42-75); PLATELET COUNT 137 x10^3/uL (130-400); RED BLOOD COUNT 3.69 x10^6/uL (4.38-5.82); RED CELL DISTRIBUTION WIDTH 14.8 % (9.4-14.8)
[2020-07-09 06:15] LABS: ALBUMIN 3.2 g/dL (3.4-5.0); CHLORIDE 106 mmol/L (98-107)
[2020-07-09 06:41] LABS: ALANINE AMINOTRANSFERASE 23 U/L (12-78); ALKALINE PHOSPHATASE 76 U/L (45-117); ANION GAP 9 mmol/L (5-15); BILIRUBIN,TOTAL 2.2 mg/dL (0.2-1.0); CALCIUM 8.3 mg/dL (8.5-10.1); CHOL/HDL RATIO 1.9; CHOLESTEROL, TOTAL 199 mg/dL (140-239); CREATININE 0.76 mg/dL (0.7-1.3); HDL CHOL % 53 % (26-37); HDL CHOLESTEROL (DIRECT) 106 mg/dL (40-60); LDL CHOLESTEROL,CALCULATED 72 mg/dL (54-169); LDL/HDL RATIO 0.7 (0.5-3.0); TOTAL PROTEIN 6.6 g/dL (6.4-8.2); TRIGLYCERIDES 107 mg/dL (50-200); VLDL CHOLESTEROL 21 mg/dL (0-25)
[2020-07-09] MEDS: FOLIC ACID 1 MG TABLET PO SCH (08:40)
[2020-07-09] MEDS: THIAMINE 100MG TABLET PO SCH (08:41)
[2020-07-09] MEDS: LISINOPRIL 10 MG TABLET PO SCH (08:41)
[2020-07-09] MEDS: MULTIVITAMIN 1 TABLET PO SCH (08:41)
[2020-07-09 08:47] VITALS: BP 149/79
[2020-07-09 13:01] VITALS: BP 135/75
[2020-07-09] MEDS ORDERED: POTASSIUM CHLORIDE 20 MEQ TAB.ER.PRT PO ONE (16:00)
[2020-07-09 18:44] VITALS: BP 149/80
[2020-07-09 19:06] LABS: MICROSCOPIC INDICATED
[2020-07-10 00:18] VITALS: BP 135/79
[2020-07-10 04:46] LABS: ANION GAP 6 mmol/L (5-15); CALCIUM 9.2 mg/dL (8.5-10.1); CHLORIDE 106 mmol/L (98-107)
[2020-07-10 04:49] LABS: CREATININE 0.92 mg/dL (0.7-1.3)
[2020-07-10 07:31] VITALS: BP 136/82
[2020-07-10] MEDS: THIAMINE 100MG TABLET PO SCH (09:39)
[2020-07-10] MEDS: LISINOPRIL 10 MG TABLET PO SCH (09:40)
[2020-07-10] MEDS: MULTIVITAMIN 1 TABLET PO SCH (09:40)
[2020-07-10] MEDS: FOLIC ACID 1 MG TABLET PO SCH (09:40)
[2020-07-10] MEDS: LORazepam 0.5MG TABLET PO PRN (09:42)
[2020-07-10 14:14] VITALS: BP 130/74
[2020-07-10] MEDS: LORazepam 2 MG/ML, 1ML IV PRN ×3 (18:42→22:41)
[2020-07-10 19:54] VITALS: BP 160/95
[2020-07-10] MEDS: ENOXAPARIN 40 MG/0.4 ML SQ SCH ×2 (22:44)
[2020-07-11] VITALS (8 sets, daily range): BP systolic 140–155; BP diastolic 78–100
[2020-07-11] MEDS ORDERED: CHLORDIAZEPOXIDE 25 MG CAPSULE PO PRN
[2020-07-11] MEDS: LORazepam 2 MG/ML, 1ML IV PRN ×2 (00:51→05:55)
[2020-07-11] MEDS ORDERED: PHARMACY INSTRUCTION MC PRN ×4 (06:30)
[2020-07-11] MEDS ORDERED: SODIUM CHLORIDE 0.9% IVPB ONE (06:30)
[2020-07-11] MEDS ORDERED: PHENOBARBITAL SODIUM IVPB ONE (06:30)
[2020-07-11] MEDS ORDERED: ERGOCALCIFEROL 50,000 UNIT CAPSULE PO SCH (07:00)
[2020-07-11 07:24] LABS: BASOPHILS % (AUTO) 1 % (0-1); EOSINOPHILS % (AUTO) 3 % (1-7); LYMPHOCYTES % (AUTO) 16 % (22-44); MEAN CORPUSCULAR HEMOGLOBIN 34.3 pg (27.5-34.5); MEAN CORPUSCULAR HGB CONC 34.1 g/dL (33.2-36.2); MEAN PLATELET VOLUME 9.1 fL (7.4-10.4); MONOCYTES % (AUTO) 9 % (2-9); NEUTROPHILS % (AUTO) 71 % (42-75); RED BLOOD COUNT 3.81 x10^6/uL (4.38-5.82); RED CELL DISTRIBUTION WIDTH 14.1 % (9.4-14.8)
[2020-07-11 07:36] LABS: ALANINE AMINOTRANSFERASE 25 U/L (12-78); ALBUMIN 3.8 g/dL (3.4-5.0); ANION GAP 9 mmol/L (5-15); CALCIUM 9.3 mg/dL (8.5-10.1); CHLORIDE 105 mmol/L (98-107); CREATININE 0.93 mg/dL (0.7-1.3)
[2020-07-11 07:38] LABS: ALKALINE PHOSPHATASE 83 U/L (45-117); BILIRUBIN,TOTAL 1.8 mg/dL (0.2-1.0); TOTAL PROTEIN 7.6 g/dL (6.4-8.2)
[2020-07-11] MEDS ORDERED: MAGNESIUM SULFATE PMX 2GM/50ML 50 ML IV ONE (08:00)
[2020-07-11 08:29] LABS: MD SCAN; PLATELET COUNT 135 x10^3/uL (130-400)
[2020-07-11] MEDS: SODIUM CHLORIDE 0.9% 1,000 ML IV SCH ×2 (09:00→20:00)
[2020-07-11] MEDS: CYANOCOBALAMIN 1,000 MCG TABLET PO SCH (09:01)
[2020-07-11] MEDS: MULTIVITAMIN 1 TABLET PO SCH (09:02)
[2020-07-11] MEDS: LISINOPRIL 10 MG TABLET PO SCH (09:02)
[2020-07-11] MEDS: THIAMINE 100MG TABLET PO SCH (09:02)
[2020-07-11] MEDS: FOLIC ACID 1 MG TABLET PO SCH (09:02)
[2020-07-11] MEDS: PHENOBARBITAL SODIUM 130 MG/ML, 1ML IM SCH (13:00)
[2020-07-11] MEDS: CARVEDILOL 3.125 MG TABLET PO SCH (17:54)
[2020-07-12] MEDS: ENOXAPARIN 40 MG/0.4 ML SQ SCH (00:04)
[2020-07-12] MEDS: PHENOBARBITAL SODIUM 130 MG/ML, 1ML IM SCH ×2 (00:05→13:00)
[2020-07-12] MEDS: SODIUM CHLORIDE 0.9% 1,000 ML IV SCH ×3 (04:28→19:39)
[2020-07-12 05:14] LABS: ANION GAP 10 mmol/L (5-15); CALCIUM 8.6 mg/dL (8.5-10.1); CHLORIDE 105 mmol/L (98-107); CREATININE 0.83 mg/dL (0.7-1.3)
[2020-07-12] MEDS: CARVEDILOL 3.125 MG TABLET PO SCH ×2 (06:20→17:30)
[2020-07-12] MEDS ORDERED: POTASSIUM CHLORIDE 20 MEQ TAB.ER.PRT PO ONE (07:00)
[2020-07-12] MEDS: FOLIC ACID 1 MG TABLET PO SCH (08:20)
[2020-07-12] MEDS: LISINOPRIL 10 MG TABLET PO SCH (08:20)
[2020-07-12] MEDS: MULTIVITAMIN 1 TABLET PO SCH (08:20)
[2020-07-12] MEDS: THIAMINE 100MG TABLET PO SCH (08:20)
[2020-07-12] MEDS: CYANOCOBALAMIN 1,000 MCG TABLET PO SCH (08:20)
[2020-07-13] MEDS: PHENOBARBITAL SODIUM 130 MG/ML, 1ML IM SCH (01:07)
[2020-07-13] MEDS: ENOXAPARIN 40 MG/0.4 ML SQ SCH (01:07)
[2020-07-13] MEDS: SODIUM CHLORIDE 0.9% 1,000 ML IV SCH (04:00)
[2020-07-13] MEDS ORDERED: ERGO500017 PO (08:57)
[2020-07-13] MEDS ORDERED: CARV3.1212 PO (08:57)
[2020-07-13] MEDS ORDERED: LISI-167 PO (08:57)
[2020-07-13] MEDS ORDERED: Cyanocobalamin PO (08:57)
[2020-07-13] MEDS: MULTIVITAMIN 1 TABLET PO SCH (09:00)
[2020-07-13] MEDS: LISINOPRIL 10 MG TABLET PO SCH (09:08)
[2020-07-13] MEDS: CARVEDILOL 3.125 MG TABLET PO SCH (09:08)
[2020-07-13] MEDS: CYANOCOBALAMIN 1,000 MCG TABLET PO SCH (09:08)
[2020-07-13] MEDS: THIAMINE 100MG TABLET PO SCH (09:08)
[2020-07-13] MEDS: FOLIC ACID 1 MG TABLET PO SCH (09:08)
[2020-07-13] MEDS ORDERED: PHENOBARBITAL 20 MG/5 ML ORAL SOL PO SCH (13:00)
[2020-07-15] MEDS ORDERED: PHENOBARBITAL 20 MG/5 ML ORAL SOL PO SCH (13:00)
[2020-07-16] MEDS ORDERED: PHENOBARBITAL 20 MG/5 ML ORAL SOL PO SCH (13:00)
== END 2020-07-13 10:34 | disposition home or self-care (01) | DRG 896 ==
LOC: ED 21:35 → EDIP 21:55 → 4WST 23:54 → CCU 07-11 05:31 → DCLOUNGE 07-13 10:25
PROVIDERS: ADMIT Internal Medicine; ATTEND Internal Medicine
DX: F10.231 Alcohol dependence with withdrawal delirium (principal); G93.41 Metabolic encephalopathy; F41.9 Anxiety disorder, unspecified; K70.9 Alcoholic liver disease, unspecified; I10 Essential (primary) hypertension; D75.89 Other specified diseases of blood and blood-forming organs; E53.8 Deficiency of other specified B group vitamins; E55.9 Vitamin D deficiency, unspecified; Z79.899 Other long term (current) drug therapy; Z91.19 Patient's noncompliance with other medical treatment and regimen; Z90.49 Acquired absence of other specified parts of digestive tract; Z88.0 Allergy status to penicillin
CPT/HCPCS: 36415; 80048; 80053; 80061; 80320; 81001; 82306; 82607; 83036; 83690; 83735; 83970; 84100; 84443; 85025; 87081; 87086; 96374; 99285; G0378; J1650; J2560; J3411; J3475; G0480; J2060; J7030

== ENCOUNTER 2020-07-22 00:26 | Emergency (ER) | payer MEDICARE ==
[~2020-07-22] VITALS: Ht 188 cm; Wt 88.0 kg
[~2020-07-22 00:26] MED LIST changes: +CARV3.1212 PO; +Cyanocobalamin PO; +ERGO500017 PO
--- NOTE | 2020-07-22 00:35 | NUR ---
katy rodriguez for etoh at home, per ems the room mate doesnt want him there, he doesnt have any medical complaint. call light in place and urinal at bs. side rails up.
--- NOTE | 2020-07-22 01:03 | NUR ---
REPORT GIVEN TO KB MACHADO. PT TO CT AT THIS TIME.
--- NOTE | 2020-07-22 01:52 | NUR ---
pt resting in bed, pt a/o x 4 with unlabored and equal breathing. pt on monitor with vss.
[2020-07-22 03:47] VITALS: BP 145/78
== END 2020-07-22 03:49 | disposition home or self-care (01) ==
LOC: ED 01:35
DX: S09.90XA Unspecified injury of head, initial encounter (principal); F10.120 Alcohol abuse with intoxication, uncomplicated; I10 Essential (primary) hypertension; Y90.0 Blood alcohol level of less than 20 mg/100 ml; X58.XXXA Exposure to other specified factors, initial encounter; Y93.89 Activity, other specified; Y92.89 Other specified places as the place of occurrence of the external cause; Y99.8 Other external cause status
CPT/HCPCS: 70450; 99284

== ENCOUNTER 2020-09-13 19:12 | Emergency (ER) | payer MEDICARE ==
[~2020-09-13] VITALS: Ht 185.4 cm; Wt 85.0 kg
[~2020-09-13 19:12] MED LIST changes: +LISI-170 PO; +MULT-482 PO; -MULT-750 PO
--- NOTE | 2020-09-13 19:24 | NUR ---
SYLWIA FROM HOME, ROOMATE CALLED FOR CONCERNS OF ETOH INTOXICATION, PT DENIES FALLS, LOC. ADMITS TO DRINKING 1/2 BOTTLE OF VODKA. PLACED VITALS MONITORS, FALL PRECAUTIONS IN PLACE, CALL LIGHT WITHIN REACH.
--- NOTE | 2020-09-13 19:30 | NUR ---
REPORT FROM ALFREDITO, ASSUME CARE OF PT AT THIS TIME.
--- NOTE | 2020-09-13 19:35 | NUR ---
MEAL TRAY PROVIDED.
--- NOTE | 2020-09-13 20:20 | NUR ---
PT AROUSABLE TO VOICE. PT ABLE TO SIT UP BUT DOES NOT APPEAR ABLE TO AMBULATE SAFELY AT THIS TIME.
--- NOTE | 2020-09-13 21:00 | NUR ---
PT ATTEMPTING TO GET OOB "TO GET SWEATER". Addendum: 09/13/20 at 2101 by LEANN PT PROVIDED SWEATER, ASSISTED BACK ONTO GURNEY AND ASSISTED IN REPOSITIONING ON BED. PILLOW, WARM BLANKET, WATER PROVIDED. PT ENCOURAGED TO REST UNTIL REASSESSMENT. REPORT TO DUKE QUILES, TRANSFER OF CARE AT THIS TIME.
--- NOTE | 2020-09-13 21:23 | NUR ---
REPORT FROM ALLEN QUILES WITH ASSESSMENT PATIENT SLEEPING LIGHTLY. ROUSED TO VOICE. SPEECH STILL SLURRED ALERT/CALM, VSS TO ROAD TEST SHORTLY
--- NOTE | 2020-09-13 21:54 | NUR ---
With assessment still quite unstable on feet. Provided with additional food/water. Updated on estimated poc
--- NOTE | 2020-09-13 22:15 | NUR ---
Provided with additional food/water Now slightly more stable on feet Tool Planner feels safe working on discharge. will do so shortly
[2020-09-13 22:58] VITALS: BP 127/80
== END 2020-09-13 23:00 | disposition home or self-care (01) ==
LOC: ED 19:29
DX: F10.120 Alcohol abuse with intoxication, uncomplicated (principal); I10 Essential (primary) hypertension; Y90.0 Blood alcohol level of less than 20 mg/100 ml
CPT/HCPCS: 99283